=== PATIENT | male | born 1980 | race Caucasian/White ===

== ENCOUNTER 2016-12-17 07:26 | Emergency (ER) | payer OTHER ==
--- NOTE | 2016-12-17 08:54 | ED ---
General Adult HPI - General Chief complaint: Head Injury Stated complaint: [facility]-face injury Time Seen by Provider: 12/17/16 08:18 Source: patient, RN notes reviewed Mode of arrival: ambulatory Limitations: no limitations - History of Present Illness Initial comments: Patient is a 36-year-old male who presents emergency room today with a chief complaint of a facial injury that occurred at work. He does admit that he was using a hand crank to crank up a metal bar. He states the hand crank came off its bernabe came around hit him on the left cheek. He states originally loss consciousness. He does admit that he has some tenderness locally. He states it 's worse with certain movements of his side of his jaw. Patient denies any other complaints or associated symptoms. Denies any dental injury. Patient denies any recent fever, chills, shortness of breath, chest pain, back pain, abdominal pain, nausea or vomiting, numbness or tingling, dysuria or hematuria, constipation or diarrhea, headaches or visual changes, or any other complaints. - Related Data Previous Rx's Medication Instructions Recorded Ibuprofen [Motrin] 600 mg PO Q6HR PRN #20 day 12/17/16 Allergies Allergy/AdvReac Type Severity Reaction Status Date / Time guar gum Allergy Anaphylaxis Verified 12/17/16 07:30 [From Benefiber (guar gum)] wheat dextrin Allergy Anaphylaxis Verified 12/17/16 07:30 [From Benefiber (wheat dextrin)] Review of Systems ROS Statement: Those systems with pertinent positive or pertinent negative responses have been documented in the HPI. ROS Other: All systems not noted in ROS Statement are negative. Past Medical History Past Medical History: No Reported History History of Any Multi-Drug Resistant Organisms: None Reported Additional Past Surgical History / Comment(s): testicular Past Psychological History: No Psychological Hx Reported Smoking Status: Current every day smoker Past Alcohol Use History: Occasional Past Drug Use History: None Reported General Exam - General Exam Comments Initial Comments: General: The patient is awake and alert, in no distress, and does not appear acutely ill. Eye: Pupils are equal, round and reactive to light, extra-ocular movements are intact. No nystagmus. There is normal conjunctiva bilaterally. No signs of icterus. Ears, nose, mouth and throat: There are moist mucous membranes and no oral lesions. Patient is able to fully open and close mouth. Able to clench teeth. Does have local tenderness over the left TMJ with left zygomatic arch tenderness as well. No obvious deformities. No step-offs appreciated. Neck: The neck is supple, there is no tenderness or JVD. Cardiovascular: There is a regular rate and rhythm. No murmur, rub or gallop is appreciated. Respiratory: Lungs are clear to auscultation, respirations are non-labored, breath sounds are equal. No wheezes, stridor, rales, or rhonchi. Musculoskeletal: Normal ROM, no tenderness. Strength 5/5. Sensation intact. Pulses equal bilaterally 2+. Neurological: A&O x 3. CN II-XII intact, There are no obvious motor or sensory deficits. Coordination appears grossly intact. Speech is normal. Skin: Skin is warm and dry and no rashes or lesions are noted. Psychiatric: Cooperative, appropriate mood & affect, normal judgment. Limitations: no limitations Course Vital Signs 12/17/16 07:30 Temperature 97.4 F L Pulse Rate 62 Respiratory 17 Rate Blood Pressure 140/72 O2 Sat by Pulse 99 Oximetry Medical Decision Making - Medical Decision Making Patient reexamined at this time shows no signs of distress. His x-rays of the facial bones are negative. Is advised return if any symptoms increase or worsen or for any other concerns. Disposition Clinical Impression: Facial contusion Disposition: HOME SELF-CARE Condition: Good Instructions: Contusion in Adults (ED) Additional Instructions: Please use ice to the affected area at least 4 times a day for 20 minutes at a time. Please use ibuprofen for pain as needed. Please return to emergency room if any symptoms increase or worsen or for any other concerns. Prescriptions: Ibuprofen [Motrin] 600 mg PO Q6HR PRN #20 day PRN Reason: Pain Referrals: None,Stated [Primary Care Provider] - 1-2 days Time of Disposition: 09:19
--- NOTE | 2016-12-17 08:58 | XR ---
EXAMINATION TYPE: XR facial bones complete DATE OF EXAM: 12/17/2016 COMPARISON: Prior study September 13, 2013 HISTORY: Contusion injury with left-sided facial pain TECHNIQUE: Complete facial bones with Sim and Sohail frontal as well as lateral projection obtai nick FINDINGS: Visualized mandible is intact. Orbital floors and gregg are intact. No suspicious opacifica tion in paranasal sinuses is present. Nasal bridge is intact. Overlying soft tissue is unremarkable. IMPRESSION: No acute displaced facial bone fracture is evident.
[2016-12-17 09:31] VITALS: BP 111/54; PULSE 58; RESP 18; TEMP 98.6
== END 2016-12-17 09:35 | disposition home or self-care (01) ==
LOC: EC 07:26
DX: S00.83XA Contusion of other part of head, initial encounter (principal); F17.200 Nicotine dependence, unspecified, uncomplicated; Z91.018 Allergy to other foods; Z91.09 Other allergy status, other than to drugs and biological substances; W31.89XA Contact with other specified machinery, initial encounter; Y92.69 Other specified industrial and construction area as the place of occurrence of the external cause; Y93.89 Activity, other specified; Y99.0 Civilian activity done for income or pay
CPT/HCPCS: 70150; 99284

== ENCOUNTER 2019-02-23 11:18 | Emergency (ER) | payer OTHER ==
[2019-02-23 11:23] VITALS: TEMP 97.8
[2019-02-23 12:03] LABS: Appearance,Urine Clear (Clear); Bilirubin,Urine Negative (Negative); Blood,Urine Negative (Negative); Color,Urine Yellow; Glucose,Urine (UA) Negative (Negative); Ketones,Urine Negative (Negative); Leukocyte Esterase,Urine Negative (Negative); Nitrite,Urine Negative (Negative); Protein,Urine Negative (Negative); Specific Gravity,Urine 1.011 (1.001-1.035); Urobilinogen,Urine <2.0 mg/dL (<2.0)
--- NOTE | 2019-02-23 12:39 | ED ---
Male Urogenital HPI - General Chief complaint: Urogenital Stated complaint: torsion Time Seen by Provider: 02/23/19 11:27 Source: patient, RN notes reviewed, old records reviewed Mode of arrival: ambulatory Limitations: no limitations - History of Present Illness Initial comments: This is a 30-year-old male the ER for evaluation. He presents today for evaluation regards to throat pain, patient has no medical history no medication, no trauma. No history of STD, no recent change in sexual partner. Patient is had one month of some scrotal pain and episodic worsening over the last day, severe left-sided testicular pain starting last night into today. No dysuria no blood in the urine. Patient denies any rash or any other issue MD Complaint: testicle pain, testicle swelling (Left-sided) -: days(s) Location: left testicle Radiation: none Severity: moderate Severity scale (1-10): 6 Quality: aching, sharp Consistency: constant Improves with: none, supine Reports: denies other symptoms - Related Data Home Medications Medication Instructions Recorded Confirmed No Known Home Medications 02/23/19 02/23/19 Allergies Allergy/AdvReac Type Severity Reaction Status Date / Time guar gum Allergy Anaphylaxis Verified 02/23/19 11:51 [From Benefiber (guar gum)] wheat dextrin Allergy Anaphylaxis Verified 02/23/19 11:51 [From Benefiber (wheat dextrin)] Review of Systems ROS Statement: Those systems with pertinent positive or pertinent negative responses have been documented in the HPI. ROS Other: All systems not noted in ROS Statement are negative. Past Medical History Past Medical History: No Reported History History of Any Multi-Drug Resistant Organisms: None Reported Additional Past Surgical History / Comment(s): testicular torsion Past Psychological History: No Psychological Hx Reported Smoking Status: Current every day smoker Past Alcohol Use History: Occasional Past Drug Use History: None Reported General Exam - General Exam Comments Initial Comments: Left-sided testicular swelling, tenderness, negative Prehn, positive cremasteric Limitations: no limitations General appearance: alert, in no apparent distress Head exam: Present: atraumatic, normocephalic, normal inspection Eye exam: Present: normal appearance, PERRL, EOMI. Absent: scleral icterus, conjunctival injection, periorbital swelling ENT exam: Present: normal exam, mucous membranes moist Neck exam: Present: normal inspection. Absent: tenderness, meningismus, lymphadenopathy Respiratory exam: Present: normal lung sounds bilaterally. Absent: respiratory distress, wheezes, rales, rhonchi, stridor Cardiovascular Exam: Present: regular rate, normal rhythm, normal heart sounds. Absent: systolic murmur, diastolic murmur, rubs, gallop, clicks GI/Abdominal exam: Present: soft, normal bowel sounds. Absent: distended, tenderness, guarding, rebound, rigid Extremities exam: Present: normal inspection, full ROM, normal capillary refill. Absent: tenderness, pedal edema, joint swelling, calf tenderness Back exam: Present: normal inspection Neurological exam: Present: alert, oriented X3, CN II-XII intact Psychiatric exam: Present: normal affect, normal mood Skin exam: Present: warm, dry, intact, normal color. Absent: rash Course Vital Signs 02/23/19 11:21 Temperature 97.8 F Pulse Rate 61 Respiratory 17 Rate Blood Pressure 117/62 O2 Sat by Pulse 100 Oximetry - Reevaluation(s) Reevaluation #1: 02/23/19 13:44 Medical records reviewed Reevaluation #2: 02/23/19 13:44 Patient continues to pain complaining some episodic pain. Informed of findings. Questions answered Medical Decision Making - Medical Decision Making 38 male the ER for evaluation with left-sided sick or pain. No findings on ultrasound, no findings on exam, urine is negative. Patient can be discharged home - Lab Data Lab Results 02/23/19 Range/Units 11:50 Urine Color Yellow Urine Appearance Clear (Clear) Urine pH 7.0 (5.0-8.0) Ur Specific [place] 1.011 (1.001-1.035) Urine Protein Negative (Negative) Urine Glucose (UA) Negative (Negative) Urine Ketones Negative (Negative) Urine Blood Negative (Negative) Urine Nitrite Negative (Negative) Urine Bilirubin Negative (Negative) Urine Urobilinogen <2.0 (<2.0) mg/dL Ur Leukocyte Esterase Negative (Negative) - Radiology Data Radiology results: report reviewed (Ultrasound scrotum is negative for acute disease), image reviewed Disposition Clinical Impression: Testicular pain, left Disposition: HOME SELF-CARE Condition: Good Instructions (If sedation given, give patient instructions): Testicle Pain (ED) Is patient prescribed a controlled substance at d/c from ED?: No Referrals: None,Stated [Primary Care Provider] - 1-2 days
--- NOTE | 2019-02-23 13:04 | US ---
EXAMINATION TYPE: US scrotum with doppler. Grayscale and color Doppler Duplex imaging performed of adarsh leary scrotum. DATE OF EXAM: 02/23/2019 COMPARISON: NONE CLINICAL HISTORY: Pain. Pt states left testicle pain x 1 month/ recently gotten worse EXAM MEASUREMENTS: TESTICLES: Right Testicle: 4.2 x 2.2 x 3.6 cm Left Testicle: 4.0 x 2.3 x 3.6 cm EPIDIDYMIS HEAD: Right Epididymis: 1.4 cm Left Epididymis: 1.3 cm Doppler performed to assess for testicular vascularity; good bilateral color flow and waveforms are s een. There is no evidence of testicular torsion. Presence of hydroceles: No Presence of varicoceles: No No abnormality visualized to account for pt's symptoms IMPRESSION: No current sonographic evidence of acute testicular torsion. No focal intratesticular mas s nor hydrocele. No sonographic abnormality to correspond to the patient's pain.
[2019-02-23 14:06] VITALS: BP 102/64; PULSE 55; RESP 16
== END 2019-02-23 13:58 | disposition home or self-care (01) ==
LOC: EC 11:18
DX: N50.812 Left testicular pain (principal); F17.200 Nicotine dependence, unspecified, uncomplicated; Z91.018 Allergy to other foods
CPT/HCPCS: 76870; 81003; 93975; 99284